=== PATIENT | male | born 1975 | race Caucasian/White ===

== ENCOUNTER 2016-12-16 06:46 | Emergency (ER) | payer OTHER ==
[~2016-12-16] VITALS: Ht 188 cm; Wt 104.5 kg
[2016-12-16 06:47] VITALS: BP 125/89; PULSE 65; RESP 16; O2SAT 97
--- NOTE | 2016-12-16 07:06 | ED.REPORT ---
HPI-Facial Injury Date of Service Dec 16, 2016 ED Provider: Cristian Erickson MD Patient is a 41 year old male who presents to the ED complaining of a laceration on the top of his head. He was going under a cabinet at work and lifted his head too early. He denies headache, dizziness, numbness, weakness, blurred vision, nausea, vomiting or any other symptoms. He does not remember when his last tetanus shot was. 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 Stated Complaint: HEAD INJURY/LACERATION Chief Complaint: Laceration Nursing Notes Reviewed: Yes ([employer], meds not reconciled) Allergies: Coded Allergies: No Known Allergies (Unverified , 12/16/16) No Active Prescriptions or Reported Meds General Time Seen by Provider: 07:15 Chief Complaint Laceration Hx Obtained From: Patient Arrived By: Walk-in Onset Occurred: Just prior to arrival Context: Occurred at: Workplace Immunizations: Unknown Past Medical History Past Medical History Healthy Past Surgical History Denies Smoking History Unknown if Ever Smoker Ambulatory Status Independent Review of Systems + laceration Eyes: Denies: Blurred bilateral Neurologic: Denies: Dizziness, Headache, Lightheaded, Numbness, Weakness Complete sys rev & neg: except as marked. GI: Denies: Nausea, Vomiting Physical Exam Initial Vital Signs Vital Signs (First) Date Time Temp Pulse Resp B/P Pulse Ox O2 Delivery O2 Flow Rate FiO2 12/16/16 06:47 36.4 65 16 125/89 97 Room Air Initial VS: Reviewed, Vital signs normal General/Constitutional: Well-developed, Well-nourished Respiratory: Breath sounds normal, Clear to auscultation, No respiratory distress Cardiovascular: Regular rate & rhythm, Heart sounds normal Abdomen / GI: Soft, Non-tender Skin: Warm, Dry, No cyanosis Psychiatric: Mood/affect normal, Behavior normal, Normal thought content Head / Eyes: Normocephalic, PERRL 3.5 cm laceration on midline of scalp ENT: Airway patent Neck: Atraumatic, Supple Neurologic: Oriented X3, Speech NL Procedures Laceration Management Time: 07:20 Procedure Performed by: ED physician Consent / Setup / Site Prep: Informed consent provided, Consent from patient Location of Wound: Top of head, midline Wound Length: 3 cm (3.5 cm) Local Anesthesia: Bupivacaine 0.5% Wound Preparation: Normal saline, Other (Patient has already irrigated and cleaned with hydrogen peroxide) Debridement: None Irrigation: Copious Repair Skin: Tabatha # Sutures - Skin: 5 Post-Procedure / Complications: No complications, Condition improved, Tolerated procedure well, Patient stable Re-Eval/Medical Decision Med Decision/Clinical Course This is a 41-year-old healthy male presents with a scalp laceration. Was at work site lift his head and caught his head against an item, causing a 3.5 cm scalp laceration. There is no loss of consciousness, no severe headache, no real mechanism for a true closed head injury, he presents with clinical findings of an isolated scalp laceration. He does not recall his last tetanus. He is not a diabetic. Does not have any significant comorbidities. Clinically appears well, he has got a linear 3.5 cm scalp laceration. The knee cleaned it at the work site and reirrigated with some hydrogen peroxide as well. Again he is awake, alert, appropriate with no clinical signs of a head injury- he does not describe the mechanism and findings indicate a need for imaging. The laceration is through the dermis and subcutaneous tissues, but there are no findings of a depressed skull fracture, no findings of foreign bodies. The wound was anesthetized, cleaned, and repaired with 5 tabatha. Wound care is discussed. Patient received a tetanus update. The patient is being discharged in improved condition. Wound care discussed. Discharge instructions discussed. Routine precautions reviewed. L&I form completed. Source of Hx: Old records Re-Evaluation/Progress : Time of Eval: 07:27 Re-Evaluation/Progress Note: Discussed plan for discharge with followup. Patient understands and agrees with plan. All questions addressed at this time. Differential Diagnosis: Positive: Laceration, Negative: Abrasion, Animal bite, Basilar skull fracture, Burn, 1st degree, Burn, 2nd degree, Burn, 3rd degree, Cervical spine injury, Closed head injury, Epistaxis, anterior, Epistaxis, posterior, Eye injury, Facial fracture, Foreign body, Gun shot wound, Hematoma, [place] I fractures, [place] II fractures, [place] III fractures, Mandible fracture, Nasal bone fracture, Septal hematoma, Stab wound, Tooth avulsion, Tooth fracture, Whiplash, Zygoma fracture Counseled Regarding: Diagnosis, Need for follow-up, When/why to return to ED Discharge & Departure Impression: Primary Impression: Scalp laceration Encounter type: initial encounter Qualified Code: S01.01XA - Laceration without foreign body of scalp, initial encounter Disposition: Home Discharge Condition All VS Reviewed: Yes Condition: Improved Additional Instructions: 1. You had a 3.5 cm scalp laceration that was repaired with 5 tabatha today. 2. It is okay to shower and pursue normal activities-no swimming for the next 10-14 days however. 3. You can take Tylenol thousand grams 4 times a day and/or ibuprofen 400 mg 800 mg 3 times a day if needed for soreness. 4. You received a tetanus update today. 5. Turn to the emergency department for staple removal in 5-7 days. (There is no charge for simply staple removal) 6. The scalp has a very good blood supply and the risk of infection is very low -however if he develops redness, fever, drainage, worsening pain-return to the emergency department directly. Referrals: Bello Sumner MD (PCP) Scribe Attestation Portions of this note were transcribed by Joanna Funk. I, Dr. Erickson personally performed the history, physical exam and medical decision-making; I reviewed and confirmed the accuracy of the information in the transcribed note. Signed by: Joanna Funk 12/16/16, 0734 copies to: Bello Sumner MD, Matthew F MD Dec 16, 2016 07:06 JOANNA FUNK Dec 16, 2016 07:22
[2016-12-16] MEDS ORDERED: TdaP Vaccine 0.5 mL Inj IM ONE (07:30)
[2016-12-16 07:56] VITALS: BP 125/91; PULSE 64; RESP 16; O2SAT 96
== END 2016-12-16 07:56 | disposition home or self-care (01) ==
LOC: SED 06:46
DX: S01.01XA Laceration without foreign body of scalp, initial encounter (principal); W22.8XXA Striking against or struck by other objects, initial encounter; Y92.59 Other trade areas as the place of occurrence of the external cause; Y93.89 Activity, other specified; Y99.0 Civilian activity done for income or pay; Z23 Encounter for immunization

== ENCOUNTER 2016-12-22 08:32 | Emergency (ER) | payer OTHER ==
[2016-12-22 08:40] VITALS: BP 131/76; PULSE 68; RESP 16; O2SAT 97
== END 2016-12-22 08:46 | disposition home or self-care (01) ==
LOC: SED 08:32
DX: Z48.02 Encounter for removal of sutures (principal)